=== PATIENT | female | born 2000 | race Two or more races ===

== ENCOUNTER 2023-12-24 01:53 | Emergency (ER) | payer MEDICAID, OTHER ==
[~2023-12-24] VITALS: Ht 177.8 cm; Wt 131.1 kg
[2023-12-24 02:20] VITALS: BP 139/78; PULSE 51; RESP 19; TEMP 98.5; O2SAT 100
[2023-12-24 02:41] LABS: Chloride 104 mmol/L (98-107); Potassium 3.5 mmol/L (3.5-5.1); Sodium 137 mmol/L (136-145)
[2023-12-24 02:42] LABS: Anion Gap 9 (5-15); Calcium 9.8 mg/dL (8.7-10.4); Carbon Dioxide 24 mmol/L (20-30)
[2023-12-24 02:47] LABS: BUN/Creatinine Ratio 12.8 (10.0-20.0); Blood Urea Nitrogen 12 mg/dL (9-23); Glucose 125 mg/dL (74-106)
[2023-12-24] MEDS: ONDANSETRON HCL 4 MG/2 ML VIAL IM ONE (02:49)
[2023-12-24 03:16] LABS: Basophils # (auto) 0 10 ^3/uL (0-0.2); Basophils % (auto) 0.1 % (0.0-2.0); Eosinophils # (auto) 0 10 ^3/uL (0-0.8); Hematocrit 39.4 % (36.0-46.0); Hemoglobin 13.2 g/dL (12.2-16.2); Lymphocytes % (auto) 9.6 % (10.0-50.0); Mean Corpuscular Hemoglobin 27.1 pg (28.0-32.0); Mean Corpuscular Hgb Conc. 33.5 g/dL (32.0-36.0); Monocytes # (auto) 0.3 10 ^3/uL (0-1.3); Monocytes % (auto) 2.7 % (0.0-12.0); Neutrophils # (auto) 9.4 10 ^3/uL (1.6-8.6); Neutrophils % (auto) 87.6 % (37.0-80.0); Nucleated Red Blood Cells % 0.1 %; Platelet Count (auto) 261 10^3/uL (140-450); Red Blood Cells 4.86 10^6/uL (4.0-5.20); Red Cell Distribution Width 15.9 % (11.8-14.3); White Blood Cell 10.7 10^3/uL (4.4-10.8)
== END 2023-12-24 03:54 | disposition home or self-care (01) ==
LOC: ER 01:53
DX: K52.9 Noninfective gastroenteritis and colitis, unspecified (principal); R10.2 Pelvic and perineal pain; F12.10 Cannabis abuse, uncomplicated
CPT/HCPCS: 36415; 80048; 84702; 85025; 96372; 99283; J2405